=== PATIENT | female | born 1995 | race African-American/Black ===

== ENCOUNTER 2017-06-22 14:44 | Emergency (ER) | payer OTHER ==
[~2017-06-22] VITALS: Ht 165.1 cm; Wt 74.8 kg
[2017-06-22 14:48] VITALS: BP 137/86
== END 2017-06-22 16:02 | disposition home or self-care (01) ==
LOC: ER 14:44
DX: S01.81XA Laceration without foreign body of other part of head, initial encounter (principal); F17.210 Nicotine dependence, cigarettes, uncomplicated; W22.01XA Walked into wall, initial encounter; Y93.01 Activity, walking, marching and hiking; Y92.89 Other specified places as the place of occurrence of the external cause; Y99.8 Other external cause status

== ENCOUNTER 2018-10-04 17:00 | Emergency (ER) | payer BC ==
[~2018-10-04] VITALS: Ht 165.1 cm; Wt 81.7 kg
--- NOTE | ~2018-10-04 | EKG ---
[facility] [place] [address] ELECTROCARDIOGRAM REPORT Name: ADRIAN REINOSO Room #: JONATHAN Nunez#: [id number] Admission: 10/04/18 Attend Phys: Discharge: Date of : [birth year] Report #: [id number] THIS REPORT FOR: //name// [facility] ED Test Date: 2018-10-04 Test Time: 17:24:46 Pat Name: ADRIAN REINOSO Department: Room: Gender: F Senior Technical Support Analyst: TRINA : 1995 Requested By: Ami Mo Order Number: [id number] MD: Measurements Intervals [place] Rate: 92 P: -4 ND: 154 QRS: 9 QRSD: 78 T: 38 QT: 356 QTc: 441 Interpretive Statements Sinus rhythm No previous ECG available for comparison [email or web address] By: 1724 1724 [employer] EpiphMD page /EPI
[2018-10-04] MEDS ORDERED: ATIVAN0.5 MG PO (17:54)
[2018-10-04 17:57] VITALS: BP 122/59
== END 2018-10-04 18:26 | disposition home or self-care (01) ==
LOC: ER 17:00
DX: F41.9 Anxiety disorder, unspecified (principal); R07.89 Other chest pain; F17.210 Nicotine dependence, cigarettes, uncomplicated

== ENCOUNTER 2018-10-04 20:20 | Emergency (ER) | payer BC ==
[~2018-10-04] VITALS: Ht 165.1 cm; Wt 81.7 kg
[~2018-10-04 20:20] MED LIST: ATIVAN0.5 MG PO
[2018-10-04 21:50] VITALS: BP 147/72
== END 2018-10-04 22:06 | disposition home or self-care (01) ==
LOC: ER 20:20
DX: F15.10 Other stimulant abuse, uncomplicated (principal); F41.9 Anxiety disorder, unspecified; F17.210 Nicotine dependence, cigarettes, uncomplicated

== ENCOUNTER 2020-12-21 10:55 | Emergency (ER) | payer OTHER ==
[~2020-12-21] VITALS: Ht 165.1 cm; Wt 77.1 kg
[2020-12-21 13:26] VITALS: BP 132/76
== END 2020-12-21 13:27 | disposition home or self-care (01) ==
LOC: ER 10:55
DX: O03.9 Complete or unspecified spontaneous abortion without complication (principal); O99.331 Smoking (tobacco) complicating pregnancy, first trimester; F17.210 Nicotine dependence, cigarettes, uncomplicated; Z79.899 Other long term (current) drug therapy; Z3A.00 Weeks of gestation of pregnancy not specified